=== PATIENT | female | born 1960 | race Caucasian/White ===

== ENCOUNTER 2021-11-02 09:06 | Outpatient (CLI) | payer OTHER | END 2021-11-02 09:07 | disposition home or self-care (01) | LOC: CSHMAMMO 09:06 | PROVIDERS: ATTEND Family Medicine | DX: Z12.31 Encounter for screening mammogram for malignant neoplasm of breast (principal) | CPT/HCPCS: 77063; 77067 ==

== ENCOUNTER 2022-12-08 09:09 | Outpatient (CLI) | payer OTHER | END 2022-12-08 09:10 | disposition home or self-care (01) | LOC: CSHMAMMO 09:09 | PROVIDERS: ATTEND Family Medicine | DX: Z12.31 Encounter for screening mammogram for malignant neoplasm of breast (principal) | CPT/HCPCS: 77063; 77067 ==